=== PATIENT | male | born 1940 | race Hispanic/Latino ===

== ENCOUNTER 2018-11-21 13:57 | Emergency (ER) | payer SELFPAY ==
[~2018-11-21] VITALS: Ht 172.7 cm; Wt 77.1 kg
[2018-11-21] MEDS ORDERED: NORVASC2.5 MG PO (14:37)
[2018-11-21] MEDS ORDERED: LISINOPRIL-HCT1 EAC2 PO (14:37)
--- NOTE | 2018-11-22 12:44 | EKG ---
[facility] [address] [facility] [place], [place] [address] Signed Sinus rhythm with marked sinus arrhythmia Otherwise normal ECG No previous ECGs available Confirmed by NADINE RAIN DO ([id number]) on 11/22/2018 12:43:57 PM Electronically Signed By: NADINE RAIN DO 11/22/18 1244 PATIENT NAME: TYRONEPAMELA Electrocardiogram DATE OF : 44 PHYSICIAN: NADINE RAIN DO REPORT #: [id number] REPORT IS CONFIDENTIAL AND NOT TO BE RELEASED WITHOUT AUTHORIZATION
== END 2018-11-21 16:02 | disposition short-term general hospital (02) ==
LOC: ED 13:57 → EDBD 13:59 → ED 16:02
DX: I62.9 Nontraumatic intracranial hemorrhage, unspecified (principal); I16.1 Hypertensive emergency; Z79.899 Other long term (current) drug therapy
CPT/HCPCS: 36415; 70450; 71045; 80053; 84484; 85025; 85610; 85730; 93005; 93010; 96374; 99291; G0390; J7060